=== PATIENT | female | born 1980 | race African-American/Black ===

== ENCOUNTER 2025-05-26 00:21 | Day surgery (SDC) | payer OTHER, SELFPAY ==
--- OUTSIDE RECORDS SUMMARY | 2007-01-03 19:00 | XMS_ITS | Continuity of Care Document ---
Author Organization [facility] Address [address] [place] [address] Phone Care Team Providers Care Spent Grain Dryer Name Role Phone Unavailable Unavailable Unavailable Procedures Procedure Date VAG DLVR AFTER C DLVR CARE Ju HOSPITAL DISCHARGE DAY MANAGEMENT; 30 AL NUTES OR LESS 1ST HOSP CARE [place] D 30 MIN Advance Directives Directive Yes / No Effective Date File Name No Information Encounters Encounter Description Practice Location Reason(s) For Visit Diagnoses Date Provider Providers Copied on Encounter HOSPITAL DISCHARGE DAY MANAGEMENT; 30 MINUTES OR LESS [facility] , [address], [place], [place], [id number], [place] tel:[phone] [facility] DELIVER-SINGLE LIVEBORNPREV X-FFCYIHAL-PXA IVRDDEL W 1 DEG LACERAT-UNSPPR EG W HX 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 200 7 No Information Family History Family Member Type Diagnosis Age At Onset No Information Payers Payer name Insurance type Covered republican ID Authoriza tion(s) No Information Social History Type Description Quantity Date Captured Comments Sex Female Smoking Status No Information Chief Complaint And Reason For Visit No Information Reason For Referral Reason For Referral No Information History Of Present Illness Encounter Date Complaint History Of Prese nt Illness No Information Functional Status Date Functional Assessmen t No Information Instructions Date Instruction Additional Infor mation No Information Assessments Type Assessment Date No Information Patient Care Teams Name Effective Dates (start - stop) Status Members No Information
--- OUTSIDE RECORDS SUMMARY | 2024-03-31 05:20 | XMS_ITS ---
Author Organization [facility] Address [id number] [place] [address] Care Team Providers Care Applications Analyst Name Role Phone DR. 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
--- OUTSIDE RECORDS SUMMARY | 2024-12-23 10:20 | XMS_ITS ---
Author Organization [facility] Address [id number] [place] [address] Care Team Providers Care Instrument Maker Apprentice Name Role Phone DR. Maria Luz Cuellar Primary Care Provider [phone] REASON FOR VISIT EST- WWE/PAP/STD testing Social History Sex Assigned At : Social History Observation Description Sex Assigned At Female Encounters Encounter Location Date Provider Diagnosis [facility] [address] [id number] [place] [address] 12/23/2024 Maria Luz Cuellar Plan Of Treatment No Information Progress Notes * Kathleen PANGDOB:1980 (45 yo F)Acc No.[id number]:12/23/2024 Progress Notes Patient: Elsa kyraJaciel lopezly Provider: Rama Cuellar :1980 A ge:44 Y S ex:Female Date:12/23/2024 Address:[address], [place], [id number] Subjective: * Chief Complaints: * E ST- WWE/PAP/STD testing Billing Information: * Procedure Codes: * Electronic signature of DR. Maria Luz Cuellar MD on 05/26/2025 at 12:24 AM CDT Sign off status: Pending Visit Status: N /S (No-Show) * Provider: Rama Cuellar Date: 0 12/23/2024 Generated for Tammy dumont/Marlon/Braditting on: 1 12:24 AM CDT
--- NOTE | 2025-05-17 10:37 | SUR.PREOP ---
[facility] has started construction of its new state of the art ER which will open Spring 2026. With this, we anticipate parking may be a challenge for some our surgical patients and families. Parking spaces are limited but are available for all Surgical, obstetrics, and ER patients sharing this lot. If you arrive and find you are having a hard time finding a parking space, please note that we understand the challenges, please drive around the hospital and park near Hospital Entrance 1. When you enter this entrance, you can ask a volunteer to direct or take you back to the surgical waiting area to check in. We appreciate everyone?s understanding of these expected challenges while we build for your future. Report to the Outpatient Waiting Room, entrance under the green pavilion located off [address], at time _830AM__ on date _05/26/25__. Planned Procedure Time: _1030am___.? Time changes happen often and if your time is changed the preop area will call you the afternoon before. - You and your visitor will be asked to self-screen and do not enter if you have any COVID symptoms. Please call surgeon if you need to reschedule. - A mask is optional within the hospital at this time. Patients may have clear liquids (water, carbonated beverages, clear teas, apple juice) until 3 hours prior to surgery with a maximum of 20 ounces. - No food from midnight until time of surgery and no smoking, or chewing tobacco (or any form of nicotine). No chewing gum, candy or mints. Take only the following medications with a SIP of water on the morning of surgery: None DO NOT STOP ANY OF YOUR OTHER PRESCRIPTION MEDICATIONS PRIOR TO SURGERY EXCEPT THE FOLLOWING Hold all vitamins and supplements for 3 days per anesthesiologist. Medications to discontinue per physician ___n/a Date to take last dose___05/22/25___ Please no make-up, nail english, hairspray, perfume, deodorant, or body powder the day of surgery.? No jewelry (including any body piercings) or valuables the day of surgery, leave them at home.? Please take a shower or bath the night before, or the morning of, surgery with an antibacterial soap.? Wear comfortable, loose fitting clothing.? - Jewelry must be removed prior to entering the operating room.? Rings and piercings that are not removed may be cut off. - The hospital will not accept responsibility for valuables.? - Please leave all valuables, including medications, at home the day of surgery. If you are going home after surgery, a licensed fleet driver must drive you home.? - NO public transportation without another adult if you receive anesthesia. - We recommend that an adult stay with you for 24 hours following discharge. - We also recommend that you do not drive, make important decision, drink alcoholic beverages, or take any drugs that were not prescribed by your health care provider for at least 24 hours after your discharge time. For Pediatric surgeries, we recommend two adults accompany the child home. Follow any additional instructions given to you from your surgeon. Telephone instructions given to ___Bev and asked if any additional questions and then verbalized understanding. Patient advised to call surgeon office or pre surgery nurse liaison [phone] if any additional questions.
[2025-05-17 10:56] VITALS: BMI 25.4
[2025-05-26] VITALS (9 sets, daily range): BP systolic 105–126; BP diastolic 69–88; PULSE 72–90; RESP 14–20; TEMP 36.2–36.6; O2SAT 85–100; BMI 24.7
--- OUTSIDE RECORDS SUMMARY | 2025-05-26 00:25 | XMS_ITS | Patient Health Record ---
Author Organization [facility] Address [id number] [place] [address] Care Team Providers Care Mold Mechanic Name Role Phone DR. Maria Luz Cuellar Primary Care Provider [phone] Bimal Layne Unavailable [phone] Sherlyn Houston Unavailable [phone] Allergies No Known Allergies Reason For Referral No Information Medications Medication SIG (Take, Route, Frequency, Duration) Notes Start Date End Date Status Pantoprazole Sodium 20 MG Tablet Delayed Release 1 tablet Orally Once a day Active Mirtazapine 30 MG Tablet 1 tablet at bed time Orally Once a day Active valACYclovir HCl 1 GM Tablet 1 tablet Orally Once a day Active Testosterone 1.62 % Gel 1 pump to skin i n the morning to shoulder, upper arms or abdomen Transdermal Once a day; Duration: 30 days Active Vitamin D3 50 MCG (1999) Tablet TAKE ONE (1) TABLET(S) BY MOUTH ONCE A DAY FOR 30 DAYS. Active Estradiol 1 MG Tablet 1 tablet Orally On ce a day Active Social History Tobacco Use: Social History Observation Description Date Details (start date - stop date) Never Smoker NA - NA Sex Assigned At : Social History Observation Description Sex Assigned At Female Social History Miscellaneous: Social Info Question Answer Notes Marital status Drug/Alcohol: Social Info Question Answer Notes Drugs/Alcohol Drugs? no Alcohol? no How often do you drink alcohol? never Dental Social Info Question Answer Notes Dental care: As of this date: 02/29/2024 Has dentist? Yes Last dental visit: within the last 6 months Tobacco Use: Social Info Question Answer Notes Smoking questionnaire Are you a smoker? non-smoker Encounters Encounter Location Date Provider Diagnosis [facility] [address] [id number] [place] [address] 08/08/2024 Sherlyn Lealselenehannah [facility] [address] [id number] [place] [address] 10/05/2024 Bimal Layne Plan Of Treatment Pending Test Test Name Order Date MAMMOGRAM, SCREENING 13765 02/29/2024 ALT+AST 02/29/2024 Insurance Providers Payer Name Payer Address Payer Phone Subscriber Number Group Number Insured Name Patient Relationship to Insured Coverage Start Date Coverage End Date A[employer] [address] [address] [place], [place] [phone] [id number] Kathleen Hernandez Self - patient is the insured Medical (General) History Medical History History ICD Code Hysterectomy pelvic absess bowl entrabdominal free air spontaneous pneumothorax Surgical History Surgery Date(Month/Year) Reconstructive surgery face 1996 SPONTANEOUS PNEUMOTHORAX 2013 c section x3 1997, 2004, 2007 Embraision of uterous 2014 Hysterectomy 02/2023 Hospitalization History Reason Date(Month/Year) See above
--- OUTSIDE RECORDS SUMMARY | 2025-05-26 00:25 | XMS_ITS | Patient Health Record ---
Author Organization [facility] Address [address] [place] [address] [address] [place], [place] [id number] Care Team Providers Care Shoulder Joiner Name Role Phone [facility] Unavailable [phone] Reason For Referral No Information Plan Of Treatment No Information Insurance Providers Payer Name Payer Address Payer Phone Subscriber Number Group Number Insured Name Patient Relationship to Insured Coverage Start Date Coverage End Date BCBS PPO POS Open Access [address] [place] [address] [id number] Kathleen Hernandez Self - patient is the insured Medical (General) History Surgical History Surgery Date(Month/Year) C/S FACE
--- OUTSIDE RECORDS SUMMARY | 2025-05-26 00:25 | XMS_ITS | Clinical Summary ---
Author Organization [facility] Address [address] [place] [address] Care Team Providers Care Southeast Regional Sales Manager Name Role Phone Unknown, Unknown Primary Care Provider Unavailab le Source Comments [facility],non-owned Affiliates and Associated Physician Practices is amultiple site organization consisting of ambulatory clinics and hospital sitesin [place], [place], [place] and [place]. This disclosure is being madepursuant to the Care Everywhere program and may not contain all information available regarding this patient. Last updated 18.[facility] Encounters Date Type Department Care Team Description 04/10/2025 8:21 AM CDT - 04/10/2025 11:59 PM CDT Hospital Encounter [facility] - Outside Imaging Discharge Disposition: Home or Self Care 04/07/2025 9:49 AM CDT - 04/07/2025 11:59 PM CDT Hospital Encounter [facility] [address] [place] [address] Unknown, Provider Discharge Disposition: Home or Self Care from Last 3 Months Social History Tobacco Use Types Packs/Day Years Used Date Smoking Tobacco: Never Assessed Comments No Sex and Gender Information Value Date Recorded Sex Assigned at Not on file Legal 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 Gender Identity Not on file Sexual Orientation Not on file Last Filed Vital Signs Vital Sign Reading Time Taken Comments Blood Pressure - - Pulse - - Temperature - - Respiratory Rate - - Oxygen Saturation - - Inhaled Oxygen Concentration - - Weight 68.9 kg (152 lb) 04/07/2025 10:16 AM CDT Height 170.2 cm (5' 7) 04/07/2025 10:16 AM CDT Body Mass Index 23.81 04/07/2025 10:16 AM CDT Plan of Treatment Health Maintenance Due Date Last Done Comments COLOGUARD (AGES 45-75) - COL ON CA SCREENING 1979 COLON MONITORING 1979 COLONOSCOPY - COLON CA SCREENING 1979 CT COLONOGRAPHY - COLON CA SCREENING 1979 Colorectal Cancer Screening 1979 FIT - COLON CA SCREENING 1979 FLEX SIG - COLON CA SCREENING 1979 LIPID TESTING 1979 HEPATITIS C SCREENING 03/21/1997 DTAP/TDAP/TD VACCINES (1 - Tdap) 1998 HEPATITIS B VACCINE (1 of 3 - 19+ 3-dose series) 1998 PAP SMEAR 2000 DEPRESSION SCREENING 07/27/2024 COVID-19 VACCINE (1 - 2023-2 5 season) 2025 INFLUENZA VACCINE (#1) 2025 MAMMOGRAM 04/07/2027 04/07/2025, 01/14/2023, 01/14/2023 ZOSTER VACCINE (1 of 2) 2029 HIV SCREENING Completed 01/19/2025 HIB VACCINE Aged Out No longer eligi ble based on patient's age to complete this topic HPV VACCINE Aged Out No longer eligi ble based on patient's age to complete this topic MENINGOCOCCAL (Group B) VACCINE SHARED DECISION-MAKING Aged Out No longer eligible based on patient's age to complete this topic MENINGOCOCCAL GROUPS A/C/Y/W VACCINE Aged Out No longer eligible b ased on patient's age to complete this topic PNEUMOCOCCAL VACCINE Aged Out No long er eligible based on patient's age to complete this topic Procedures Procedure Name Priority Date/Time Associated Diagnosis Comments MAMMO BILAT SCREENING W EDGAR Routine 04/07/2025 10:21 AM CDT Encounter for screening mammogram for breast cancer from Last 3 Months Results * Mammo Bilat Screening W Edgar (04/07/2025 10:21 AM CDT) Anatomical Region Laterality Modality Breast Bilateral Mammography 04/10/2025 10:5 3 AM CDT Impressions 04/10/2025 10:56 AM CDT IMPRESSION: Annual screening mammography is recommended. The patient's breast are extremely dense. Supplemental screening with annual bilateral complete breast ultrasound should be considered. OVERALL FINAL ASSESSMENT: BI-RADS Category 1: Negative. > Interpreting Provider: Shahid Marquez MD on 04/10/2025 10:56 AM Narrative 04/10/2025 10:56 AM CDT EXAMINATION: BILATERAL DIGITAL SCREENING MAMMOGRAM AND BILATERAL BREAST TOMOSYNTHESIS HISTORY: Screening. COMPARISON: January 14, 2023. TECHNIQUE: BILATERAL digital breast tomosynthesis (DBT) and synthetic 2D digital mammogram images were obtained (bilateral craniocaudal and mediolateral oblique projections) including computer aided detection (CAD.) BREAST PARENCHYMAL COMPOSITION:Category D: The breasts are extremely dense which lowers the sensitivity of mammography. MAMMOGRAM FINDINGS: There is no suspicious finding in either breast. us Provider Unknown MAMMO ORDERABLES Final Result from Last 3 Months Insurance [employer]ET[employer] Care Teams Southeast Regional Sales Manager Relationship Specialty Start Date End Date Unknown, Unknown PCP - General 04/07/25
[2025-05-26] MEDS: LACTATED RINGERS 1,000 ML 30 ML IV CONT ×2 (09:00→12:47)
[2025-05-26] MEDS: TRANEXAMIC ACID 1,000MG/ISO100 1,000 MG/100 ML BAG 200 MG IVPB (10:00)
--- NOTE | 2025-05-26 10:01 | WPDHPUPDATE1 ---
History and Physical Update Update Date/Time: 05/26/25 10:01 History and Physical has been reviewed, including an updated exam of the patient. There are NO changes in the patient's condition. Risks, benefits, and alternatives have been discussed and questions answered. Patient agrees to proceed with procedure.
--- NOTE | 2025-05-26 10:01 | W.PM.PROC2 ---
Procedure Note - Detailed Date of Procedure 05/26/25 Pre-op Diagnosis Breast Ptosis, Micromastia Post-op Diagnosis Same Procedure Performed Bilateral augmentation mastopexy Surgeon Trace Wang MD Anesthesia General Findings Inverted T Superior pedicle Bilateral Truong 445cc implants Right: REF# [id number] SN [id number] Left: REF# [id number] SN [id number] Lipoaspirate: 50 cc Description of Procedure She is here today for bilateral breast augmentation mastopexy. Previously and again today the risks, benefits, alternatives were discussed in extensive detail. I wanted her to be very realistic about the risks involved as well as expectations. We discussed aftercare and what to monitor for. Made sure answered all of her questions to her satisfaction today and consent was obtained. Marked in the preoperative holding area with their verification. The patient was taken to the operating room placed supine on the operating table. Anesthesia was provided by anesthesiology. A surgical time-out was taken. She was prepped and draped in a standard sterile fashion. Tumescent was utilized laterally to provide field block Tegaderm nipple Pizano were placed. A 15 blade used to make an incision just superior to the inframammary fold leaving a cusp of de-epithelized tissue at the t junction. Dissection was continued until the chest wall as identified. I elevated a subfascial pocket in the appropriate dimensions based on our preoperative planning for the implant. I then copiously irrigated with saline solution and verified a strict hemostasis. Next the use a triple antibiotic and Betadine containing solution to irrigate the pocket. I washed my gloves with the triple antibiotic and Betadine solution. We washed the implant immediately upon opening it with this solution and only opened it when we needed it. I used implant funnel and no-touch technique. The implant was introduced into the pocket using the funnel. Having verified positioning of the implant this was closed using 2-0 PDS. I tailor tacked the breast into position. Placed her in a sitting position. Verified the nipple-areolar location based on preoperative planning as well as intraoperative observations and measurements in full agreement. Suction lipectomy was completed laterally with a 4mm homer cannula. This was based on preoperative planning, intraoperative observation, and rolling pinch which was in full agreement. She was placed supine. I de-epithelialized the pedicle. I then removed the inferior central portion of the breast need making sure the implant was well protected. I elevated medial and lateral tissue flaps as well for planned closure. Secured the IMF with 2-0 PDS. I closed along the IMF with 2-0 PDS. Along the vertical with 2-0 PDS. I closed around the areola and the vertical incision with 3-0 Monocryl. 3-0 Stratafix along the IMF. I finally closed everything with running subcuticular 4-0 Monocryl and tissue glue. Brijjit's placed. Fluffs and surgical bra were placed. Estimated Blood Loss 40 Drains No Packing No Pathology None sent Complications No immediate complications Condition Stable Disposition PACU
--- NOTE | 2025-05-26 10:23 | WPDANESEPPF ---
Anes - Initial Pre Proc Eval Procedure: Operation Date: 05/26/25 10:30 Proposed Procedures p Bilateral Breast Augmentation - Trace Wang MD s Bilateral Breast Mastopexy - Trace Wang MD Date/Time: 05/26/25 10:23 Surgeon: Trace Wang MD Pre Op Diagnosis: Breast Ptosis, Micromastia Patient Data Age: 45 Gender: F Height: 1.7 m Weight: 71.75 kg Last Vital Signs Temp 97.8 F 05/26/25 08:20 Pulse 90 05/26/25 08:20 Resp 16 05/26/25 08:20 BP 113/88 05/26/25 08:20 Pulse Ox 99 05/26/25 08:20 O2 Del Method Room Air 05/26/25 08:20 Allergies Allergy/AdvReac Type Severity Reaction Status Date / Time No Known Allergies Allergy Verified 05/26/25 09:12 Home Medications ?Medication ?Instructions ?Recorded ?Confirmed ?Type gabapentin 300 mg capsule 300 mg PO HS 05/17/25 05/17/25 History mirtazapine 15 mg tablet 30 mg PO HS 05/17/25 05/17/25 History multivitamin (Daily Multi-Vitamin 1 tablet PO DAILY 05/17/25 05/17/25 History tablet) Laboratory Tests 05/26/25 08:32 Cotinine Negative Patient hx anesthesia problems: none Family hx anesthesia problems: none Results Review: All pre-operative results and documents have been reviewed as part of the pre-operative evaluation. [facility] Social History Social History Smoking status: Former smoker Tobacco type: e-cigarettes/vaping Additional smoking assessment comments: quit less than a year ago. Alcohol use details: 2/month Substance use: current Substance use type: marijuana Other substance usage details: daily Living arrangements: with family Spiritual care concerns: No Anes - Eval Final PreProcedure Day of Procedure 05/26/25 10:23 Patient weight: normal Heart: regular rate and rhythm Lungs: clear to auscultation Airway: Mallampati scale class II Neurological: alert and oriented Last oral intake: >/= 8 hours ASA classification: II Emergent: no Anesthetic plan: proceed Anesthesia type and monitoring: general LMA and standard monitoring Results Review: All pre-operative results and documents have been reviewed as part of the pre-operative evaluation. Informed Consent: The patient's anesthetic plan and its attendant risks and benefits were discussed with the patient/family/POA. Questions were solicited and answers provided to the satisfaction of the patient/family/POA.
[2025-05-26] MEDS: ceFAZolin 2 GM in SODIUM CHLORIDE 0.9% IV 50 ML 100 ML IVPB (10:30)
[2025-05-26] MEDS: NACL 0.9% IRRIG POUR BOTTLE 900 ML, GENTAMICIN SULFATE INJ 160 MG, ceFAZolin 2 GM, POVI... IRRIGATION (10:55)
[2025-05-26] MEDS: LACTATED RINGERS IRRIG 1,000 ML, LIDOCAINE 1% LOCAL INJ 50 ML, EPINEPHrine HCL INJ 1 MG... INFILTRATE (10:56)
[2025-05-26] MEDS: KETOROLAC 15 MG/ML VIAL (*BKC) IV PUSH (12:32)
[2025-05-26] MEDS: fentaNYL CITRATE INJ (*CRX) 100 MCG/2 ML VIAL 25 MCG IV PUSH ×8 (13:00→13:53)
[2025-05-26] MEDS: ONDANSETRON INJ 4 MG/2 ML VIAL IV PUSH (13:18)
[2025-05-26] MEDS: oxyCODONE HCL (*CRX) 5 MG TAB IR PO (14:18)
== END 2025-05-26 15:08 | disposition home or self-care (01) ==
PROVIDERS: Visit Provider Surgery Plastic and Reconstructive Surgery
PROC: (CPT 19316; principal; 2025-05-26 10:30)
PROC: (CPT 19316; 2025-05-26 10:30)
DX: Z41.1 Encounter for cosmetic surgery (principal); N64.82 Hypoplasia of breast; N64.81 Ptosis of breast; F32.A Depression, unspecified; F12.90 Cannabis use, unspecified, uncomplicated; Z79.891 Long term (current) use of opiate analgesic; Z98.890 Other specified postprocedural states; Z87.891 Personal history of nicotine dependence
CPT/HCPCS: 19316; 19325; 80307; J0690; A9270; J0166; J1100; J1580; J1885; J2003; J2250; J2405; J2704; J3010; J3290; J7120